=== PATIENT | female | born 1985 | race Caucasian/White ===

== ENCOUNTER 2016-10-17 09:18 | Inpatient (IN) | payer OTHER ==
[~2016-10-17] VITALS: Ht 160 cm; Wt 97.7 kg
[2016-10-17 09:30] VITALS: BP 128/83
[2016-10-17] MEDS ORDERED: OXYTOCIN 30U/ 0.9% NaCL 500ML 500 ML IV ONE (10:14)
[2016-10-17] MEDS ORDERED: D5%-LACTATED RINGERS 1,000 ML IV SCH (10:14)
[2016-10-17] MEDS ORDERED: FENTANYL PF 100 MCG/2ML IVPush PRN (10:30)
[2016-10-17] MEDS ORDERED: TERBUTALINE 1 MG/ML, 1ML IVPush PRN (10:30)
[2016-10-17] MEDS ORDERED: FENTANYL PF 100 MCG/2ML IV PRN (10:30)
[2016-10-17] MEDS ORDERED: ONDANSETRON 2MG/ML, 2ML IVPush PRN (10:30)
[2016-10-17 10:44] LABS: HEMATOCRIT 38.2 % (34.6-47.8); HEMOGLOBIN 12.5 g/dL (11.7-16.4); WHITE BLOOD COUNT 14.5 x10^3/uL (3.4-10)
[2016-10-17] MEDS ORDERED: ONDANSETRON 2MG/ML, 2ML ONE (10:59)
[2016-10-17] MEDS ORDERED: NEWBORN KIT ONE (11:14)
[2016-10-17] MEDS ORDERED: LIDOCAINE 1%, 20ML ONE (15:02)
[2016-10-17] MEDS ORDERED: OXYTOCIN 30U/ 0.9% NaCL 500ML 500 ML ONE (15:02)
[2016-10-17] MEDS ORDERED: MISOPROSTOL 200 MCG TABLET ONE (15:02)
[2016-10-17] MEDS ORDERED: OXYTOCIN 30U/ 0.9% NaCL 500ML 500 ML IV PRN (17:59)
[2016-10-17] MEDS ORDERED: FENTANYL PF 100 MCG/2ML ONE (20:27)
[2016-10-17] MEDS: LACTATED RINGERS 1,000 ML IV SCH ×3 (20:52→22:37)
[2016-10-17] MEDS ORDERED: LIDOCAINE/PF 1.5%-EPI 1:200K, 30ML ONE ×2 (21:30→21:34)
[2016-10-17] MEDS ORDERED: FENTANYL/BUPIV./NS/PF 250 ML EPIDCONT ONE ×2 (21:30→21:35)
[2016-10-17] MEDS ORDERED: FENTANYL/BUPIV./NS/PF 250 ML EPIDCONT SCH (21:55)
[2016-10-17] MEDS ORDERED: LACTATED RINGERS 1,000 ML IVBOLUS PRN (22:00)
[2016-10-18] MEDS: OXYTOCIN 30U/ 0.9% NaCL 500ML 500 ML IV SCH ×3 (02:45→22:45)
[2016-10-18] MEDS ORDERED: OXYTOCIN 30U/ 0.9% NaCL 500ML 500 ML ONE (02:59)
[2016-10-18] MEDS ORDERED: ACETAMINOPHEN 325 MG TABLET PO PRN (03:00)
[2016-10-18] MEDS ORDERED: RHOGAM FROM BLOOD BANK 1 NOTE EA IM/IV ONE (03:00)
[2016-10-18] MEDS ORDERED: CALCIUM CARBONATE 500 MG TAB.CHEW PO PRN (03:00)
[2016-10-18] MEDS ORDERED: ONDANSETRON 2MG/ML, 2ML IV PRN (03:00)
[2016-10-18] MEDS ORDERED: OXYcodone/APAP 5/325MG TABLET PO PRN ×2 (03:00)
[2016-10-18] MEDS ORDERED: METHYLERGONOVINE 0.2 MG/ML IM PRN (03:00)
[2016-10-18] MEDS ORDERED: CARBOPROST TROMETHAMINE 250 MCG/ML, 1ML IM PRN (03:00)
[2016-10-18] MEDS ORDERED: MISOPROSTOL 200 MCG TABLET PR PRN (03:00)
[2016-10-18 04:50] VITALS: BP 117/78
[2016-10-18] MEDS: LACTATED RINGERS 1,000 ML IV SCH ×3 (05:55→21:55)
[2016-10-18 07:10] VITALS: BP 115/75
[2016-10-18] MEDS: PRENATAL VIT/IRON/FA 1 EACH TABLET PO SCH (09:41)
[2016-10-18] MEDS: DOCUSATE 100 MG CAPSULE PO PRN ×2 (09:41→20:09)
[2016-10-18] MEDS: IBUPROFEN 600 MG TABLET PO PRN ×2 (09:42→18:30)
[2016-10-18 10:23] LABS: HEMATOCRIT 34.1 % (34.6-47.8); HEMOGLOBIN 10.9 g/dL (11.7-16.4); WHITE BLOOD COUNT 12.1 x10^3/uL (3.4-10)
[2016-10-18 12:00] VITALS: BP 112/71
[2016-10-18 19:00] VITALS: BP 114/69
[2016-10-18] MEDS ORDERED: DIPH,PERTUSS(ACELL),TET VAC/PF NC IM-VACC ONE (19:59)
[2016-10-18 23:51] VITALS: BP 127/78
[2016-10-19 04:00] VITALS: BP 116/70
[2016-10-19] MEDS: IBUPROFEN 600 MG TABLET PO PRN ×2 (05:23→13:27)
[2016-10-19] MEDS: LACTATED RINGERS 1,000 ML IV SCH (05:55)
[2016-10-19 08:30] VITALS: BP 108/69
[2016-10-19] MEDS: OXYTOCIN 30U/ 0.9% NaCL 500ML 500 ML IV SCH (08:45)
[2016-10-19] MEDS: PRENATAL VIT/IRON/FA 1 EACH TABLET PO SCH (09:51)
[2016-10-19] MEDS: DOCUSATE 100 MG CAPSULE PO PRN (09:51)
[2016-10-19] MEDS ORDERED: OXYC-302 PO (11:47)
[2016-10-19] MEDS ORDERED: IBUP-1222 PO (11:50)
[2016-10-19] MEDS ORDERED: ONDANSETRON 2MG/ML, 2ML IV PRN (14:00)
[2016-10-19] MEDS ORDERED: CALCIUM CARBONATE 500 MG TAB.CHEW PO PRN (14:00)
[2016-10-19] MEDS ORDERED: LACTATED RINGERS 1,000 ML IV SCH (14:00)
[2016-10-19] MEDS ORDERED: DOCUSATE 100 MG CAPSULE PO PRN (14:00)
[2016-10-19] MEDS ORDERED: OXYcodone/APAP 5/325MG TABLET PO PRN ×2 (14:00)
[2016-10-19] MEDS ORDERED: ACETAMINOPHEN 325 MG TABLET PO PRN (14:00)
== END 2016-10-19 14:45 | disposition home or self-care (01) | DRG 775 ==
LOC: LDOP 09:18 → LDIP 10:26 → 2NW 10-18 04:38
PROVIDERS: ADMIT Obstetrics & Gynecology; ATTEND Obstetrics & Gynecology
PROC: 0HQ9XZZ Repair Perineum Skin, External Approach (ICD-10-PCS; principal; 2016-10-17)
PROC: 10E0XZZ Delivery of Products of Conception, External Approach (ICD-10-PCS; 2016-10-17)
PROC: 3E0S3CZ (ICD-10-PCS; 2016-10-17)
PROC: 00HU33Z Insertion of Infusion Device into Spinal Canal, Percutaneous Approach (ICD-10-PCS; 2016-10-17)
DX: O62.3 Precipitate labor (principal); O77.0 Labor and delivery complicated by meconium in amniotic fluid; O69.81X0 Labor and delivery complicated by cord around neck, without compression, not applicable or unspecified; Z37.0 Single live birth; Z3A.39 39 weeks gestation of pregnancy; O70.0 First degree perineal laceration during delivery
CPT/HCPCS: 36415; 85025; 85461; 86850; 86900; J2405; J2790; J3010; J3490; J2590; J7120; J7121

== ENCOUNTER 2018-08-02 14:08 | Outpatient (CLI) | payer BC ==
[~2018-08-02 14:08] MED LIST: IBUP-1222 PO; OXYC-302 PO
[2018-08-02] MEDS ORDERED: PREN1TAB60 PO (14:26)
[2018-08-02 14:54] VITALS: BP 117/68
[2018-08-02 15:02] LABS: CREATININE,URINE RANDOM 48.6 mg/dL
[2018-08-02 15:19] LABS: ALANINE AMINOTRANSFERASE 10 U/L (12-78); ALBUMIN 2.6 g/dL (3.4-5.0); ANION GAP 9 mmol/L (5-15); CALCIUM 8.2 mg/dL (8.5-10.1); CHLORIDE 109 mmol/L (98-107)
[2018-08-02 15:21] LABS: ALKALINE PHOSPHATASE 97 U/L (45-117); BILIRUBIN,TOTAL 0.3 mg/dL (0.2-1.0); TOTAL PROTEIN 6.7 g/dL (6.4-8.2)
[2018-08-02 15:48] LABS: BASOPHILS % (AUTO) 0 % (0-1); EOSINOPHILS % (AUTO) 0 % (1-7); LYMPHOCYTES % (AUTO) 16 % (22-44); MD SCAN; MEAN CORPUSCULAR HEMOGLOBIN 27.2 pg (27.0-34.8); MEAN CORPUSCULAR HGB CONC 32.2 g/dL (32.4-35.8); MEAN CORPUSCULAR VOLUME 84.5 fL (80-100); MEAN PLATELET VOLUME 8.8 fL (7.4-10.4); MONOCYTES % (AUTO) 4 % (2-9); NEUTROPHILS % (AUTO) 79 % (42-75); PLATELET COUNT 241 x10^3/uL (130-400); RED BLOOD COUNT 4.06 x10^6/uL (3.82-5.3); RED CELL DISTRIBUTION WIDTH 13.6 % (9.6-15.2)
[2018-08-02 16:00] LABS: EOSINOPHILS # (AUTO) 0.03 x10^3/uL (0-0.4); LYMPHOCYTES # (AUTO) 1.66 x10^3/uL (1-3.4); MONOCYTES # (AUTO) 0.45 x10^3/uL (0.2-0.8); NEUTROPHILS # (AUTO) 8.39 x10^3/uL (1.8-6.8)
[2018-08-02 16:01] LABS: BASOPHILS # (AUTO) 0.03 x10^3/uL (0-0.1)
== END 2018-08-02 16:45 | disposition home or self-care (01) ==
LOC: LDOP 14:08
PROVIDERS: ATTEND Obstetrics & Gynecology
DX: O26.893 Other specified pregnancy related conditions, third trimester (principal); R03.0 Elevated blood-pressure reading, without diagnosis of hypertension; Z3A.32 32 weeks gestation of pregnancy
CPT/HCPCS: 36415; 59025; 80053; 82570; 84156; 84550; 85025; 99201; G0463

== ENCOUNTER 2018-09-21 13:34 | Inpatient (IN) | payer BC ==
[~2018-09-21] VITALS: Ht 160 cm; Wt 104.5 kg
[2018-09-22 16:51] VITALS: BP 119/83
== END 2018-09-22 19:15 | disposition home or self-care (01) | DRG 807 ==
LOC: LDOP 13:34 → LDIP 16:22 → 2NW 20:50
PROVIDERS: ADMIT Obstetrics & Gynecology; ATTEND Obstetrics & Gynecology
PROC: 10E0XZZ Delivery of Products of Conception, External Approach (ICD-10-PCS; principal; 2018-09-21)
PROC: 0HQ9XZZ Repair Perineum Skin, External Approach (ICD-10-PCS; 2018-09-21)
PROC: 3E0334Z Introduction of Serum, Toxoid and Vaccine into Peripheral Vein, Percutaneous Approach (ICD-10-PCS; 2018-09-22)
DX: O62.3 Precipitate labor (principal); Z37.0 Single live birth; O70.0 First degree perineal laceration during delivery; E66.9 Obesity, unspecified; O99.214 Obesity complicating childbirth; Z3A.39 39 weeks gestation of pregnancy; Z67.91 Unspecified blood type, Rh negative; Z87.410 Personal history of cervical dysplasia; Z88.2 Allergy status to sulfonamides
CPT/HCPCS: 36415; J2790; 81001; 85025; 85461; 86850; 86900; G0378; J3010; J2590; J7120